=== PATIENT | female | born 2005 | race Caucasian/White ===

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

== ENCOUNTER 2023-02-13 08:50 | Emergency (ER) | payer OTHER, SELFPAY ==
[2023-02-13 08:53] VITALS: BP 129/82; PULSE 85; RESP 16; TEMP 36.6; O2SAT 98
--- NOTE | 2023-02-13 09:00 | DI.CT_ITS ---
Exam(s) CT HEAD WO EXAM: CT HEAD WO CLINICAL HISTORY: left frontal head injury. TECHNIQUE: Imaging Protocol: Axial computed tomography images with coronal and sagittal reformatted images were created and reviewed COMPARISON: No exams were available for comparison FINDINGS: Ventricles and Extra axial spaces: Normal in size and morphology for the patient's age. Hemorrhage: None. Cerebral parenchyma: No evidence of acute infarct or mass. Midline shift: None. Brainstem/Cerebellum: Normal. Calvarium: Normal. Visualized Paranasal sinuses/Mastoids: Clear. Soft Tissues: Unremarkable. IMPRESSION: No acute intracranial process. RADIATION DOSE DELIVERED: Total DLP DATA REPOSITORY: All CT scans at this facility are submitted to the National Radiology Data Registry (NRDR) Dose Index Registry (DIR) with the [employer] (ACR). RADIATION OPTIMIZATION: All CT scans at this facility use at least one of these dose optimization te chniques: automated exposure control; mA and/or kV adjustment per patient size (includes targeted exa ms where dose is matched to clinical indication); or iterative reconstruction.
--- NOTE | 2023-02-13 09:13 | ED.GENADUL_ITS ---
Discharge Plan Disposition Patient Disposition: Home Condition: Improving Discharge Details Chief Complaint: HeadInjury Clinical Impression: Head injury Primary Care Provider: Lora Clemens ED Provider: Jameson Garay Home Meds and New Rx's Prescriptions: No Action Mirena 20 mcg/24 hours (5 yrs) 52 mg intrauterine device 1 device IY ONCE ibuprofen 800 mg Tablet 800 mg PO Q6H PRN acetaminophen 500 mg Tablet 1,000 mg PO Q6H PRN Discharge Instructions Instructions: Concussion (ED), Head Injury (ED) Additional Instructions: Please follow-up with your primary care physician. Please return to the emergency department for any worsening symptoms Stand Alone Forms: Work Release Medical Decision Making 17-year-old female presents 2 days after stating head injury at work, was struck in the head by a dog's head, pain to left brow, no loss of consciousness, has experienced nausea dizziness head pressure over the past 2 days, history of prior concussion, neurologically intact nonfocal, full strength and sensation, cranial nerves intact, no truncal ataxia, ambulatory without assistance, afebrile nontoxic, likely concussion however given patient concern and persistent symptomatology will obtain CT head to assess for intracerebral hemorrhage or skull fracture; trial of anti-inflammatory analgesia and antiemetics. Close reassessment. 10: 10 patient resting notably no acute distress neurologically intact. CT head unremarkable. Home care instructions and return precautions given. Likely mild to moderate concussion HPI General Date/Time Provider Initiated Documentation: 02/13/23 08:51 . HPI Narrative: 17-year-old female presents 2 days after sustaining head injury at work at which time patient was restraining a dog whose head struck her left forehead, no loss of consciousness however has had headache nausea dizziness over the past 2 days, history of concussions in the past this feels different than her last concussion. No vomiting, no falls although does feel slightly unsteady. No weakness or numbness described. Related Data Home Medications Medication Instructions Recorded Confirmed levonorgestrel 21 mcg/24 hours (8 1 device intrauterine ONCE 07/15/18 02/13/23 yrs) 52 mg intrauterine device (Mirena) acetaminophen 500 mg tablet 1,000 mg PO Q6H PRN 05/06/22 02/13/23 ibuprofen 800 mg tablet 800 mg PO Q6H PRN 05/06/22 02/13/23 Allergies Allergy/AdvReac Type Severity Reaction Status Date / Time Penicillins Allergy Family Verified 02/13/23 08:58 HX-pt has never had pcn General Stated Complaint: HeadInjury CHARISSE: 3 Review of Systems Narrative: Review of Systems Constitutional: negative Eyes: negative ENT: negative Cardiovascular: negative Respiratory: negative Gastrointestinal: negative : negative Musculoskeletal: negative Skin: negative Neurologic: Headache, dizziness Psych: negative PFSH All Active Problems (Updated 02/13/23 @ 10:12 by Jameson Garay MD) Head injury (Acute) Unvaccinated for covid-19 (Acute) Shrimp allergy (Acute) Anxiety (Chronic) TMJ arthralgia (Acute) Family disruption (Acute) IUD surveillance (Chronic ~06/2018) Mirena for Dysmenorrhea Dysmenorrhea in adolescent (Chronic) Routine child health exam (Acute 07/19/14) 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 IEP signed 04/02/2018 Pediatric body mass index (BMI) of 5th percentile to less than 85th percentile for age (Acute 07/18/16) Keratosis pilaris (Chronic 07/19/15) Hx of penicillin allergy (Acute 07/19/15) strong maternal family history of this allergy she has never used PCN Surgical History No significant past surgical history Family History Mother Dental caries Mental disorder anxiety/depression Other Diabetes MGF, many other maternal relatives Essential hypertension MGF, other mat relatives Deep vein thrombosis (DVT) MGF, MGGM Personal history of malignant neoplasm maternal side- breast, cervical and other kinds Heart disease MGF Hyperlipidemia MGF Mental disorder MGGM, MGF- anxiety/depression Myocardial infarction MGF Maternal Grandmother Breast cancer Aunt Breast cancer Social History Smoking/Tobacco Use Status: Never Smoking risk assessment performed?: Yes Alcohol Intake: never Drug use: Never Substance use type: does not use Housing: apartment Education Level: high school Details: [employer] Pets and animals: Yes (3 DOGS AND 2 CATS ) Pets and animals: cat(s), dog(s) and hamster(s) Sexually active: No Do you think of yourself as: straight/heterosexual Current gender identity: female Seatbelt use: always Helmet use: Yes Helmet use: always Fire extinguisher in home: Yes Carbon monox detector in home: Yes Do you feel safe at home: Yes Do you feel safe in your relationship?: Yes Female Reproductive History Menstrual Duration of menses: 6-7 days control method: none and progestin IUCD (mirena IUD inserted by Shavonne Martins NP [id number] EXP=11/2020) History History 0 Para Hx # Term Pregnancies Multiple births Hx # Pregnancies Ectopic pregnancies AB induced Hx Number of Living Children AB spontaneous Exam Narrative Exam Narrative: Physical Examination General: alert, awake, cooperative, resting comfortably, no acute distress HEENT: normocephalic, atraumatic; PERRL, EOM intact, conjunctiva normal; no nasal discharge; moist mucous membranes, oral and pharyngeal mucosa normal, tolerating secretions; TMs clear bilaterally Neck: supple, trachea midline; full ROM Chest: normal to inspection Respiratory: normal respiratory effort, speaking in full sentences Skin: no lesions, rashes or trauma appreciated Neuro: AAOx3, normal speech, moving all extremities; cranial nerves II through XII intact, 5 out of 5 strength upper and lower extremities Extremities: No signs of trauma Psych: Appropriate mood and affect Course Vital Signs Vital signs: Vital Signs Temperature 36.6 C 02/13/23 08:53 Pulse 85 02/13/23 08:53 Respiratory Rate 16 02/13/23 08:53 Blood Pressure 129/82 02/13/23 08:53 Pulse Oximetry 98 02/13/23 08:53 Temperature 36.6 C 02/13/23 08:53 Temperature Source Temporal Artery Scan 02/13/23 08:53 Pulse 85 02/13/23 08:53 Respiratory Rate 16 02/13/23 08:53 Respiratory Effort Normal 02/13/23 09:02 Respiratory Depth Normal 02/13/23 09:02 Respiratory Pattern Normal 02/13/23 09:02 Blood Pressure 129/82 02/13/23 08:53 Pulse Oximetry 98 02/13/23 08:53 Oxygen Delivery Method Room Air 02/13/23 08:53 Oxygen Flow Rate 0 02/13/23 08:53
[2023-02-13] MEDS: Dexamethasone 10 MG/ML VIAL PO (09:19)
[2023-02-13] MEDS: Ondansetron O.D.T. 4 MG TABEF SL (09:20)
[2023-02-13] MEDS: Acetaminophen 325 MG TAB 650 MG PO (09:20)
[2023-02-13 10:18] VITALS: BP 125/75; PULSE 72; O2SAT 98
== END 2023-02-13 10:18 | disposition home or self-care (01) ==
PROVIDERS: Emergency Provider Emergency Medicine; PCP Nurse Practitioner Family
DX: R11.0 Nausea (principal); R42 Dizziness and giddiness; S09.90XA Unspecified injury of head, initial encounter; W54.1XXA Struck by dog, initial encounter
CPT/HCPCS: 99284; 70450; 99283; J1100

== ENCOUNTER 2023-09-11 20:04 | Emergency (ER) | payer OTHER, SELFPAY ==
[2023-09-11 20:08] VITALS: BP 114/80; PULSE 74; RESP 16; TEMP 36; O2SAT 99
--- NOTE | 2023-09-11 20:21 | ED.GENADUL_ITS ---
Discharge Plan Disposition Patient Disposition: Home Condition: Stable Discharge Details Clinical Impression: Fish hook in elbow Primary Care Provider: Lora Clemens ED Provider: Donaldo Martins Home Meds and New Rx's Prescriptions: New cephalexin 500 mg tablet 500 mg PO QID 5 Days Qty: 20 0RF levofloxacin 750 mg tablet 750 mg PO DAILY Qty: 5 0RF Continued ibuprofen 800 mg Tablet 800 mg PO Q6H PRN acetaminophen 500 mg Tablet 1,000 mg PO Q6H PRN Discharge Instructions Additional Instructions: Your wound should heal well on their own. If you have redness spreading away from the wound or severe pain return to the emergency department for reevaluation HPI General Mode of arrival: ambulatory . Date/Time Provider Initiated Documentation: 09/11/23 20:14 . Limitations to Documentation: no limitations . Information obtained by: patient . History of Present Illness 18 year old F presents to the emergency department with the chief complaint of fishhook left arm, described as mild, Quality is described as aching, Patient started experiencing this hour(s) (1) and it has been constant. No relieving factors improve symptom(s), No exacerbating factors reported . Patient notes no other symptoms.. Patient did receive the following treatments prior to arrival, none Related Data Home Medications Medication Instructions Recorded Confirmed acetaminophen 500 mg tablet 1,000 mg PO Q6H PRN 05/06/22 09/11/23 ibuprofen 800 mg tablet 800 mg PO Q6H PRN 05/06/22 09/11/23 cephalexin 500 mg tablet 500 mg PO QID 5 days #20 tabs 09/11/23 levofloxacin 750 mg tablet 750 mg PO DAILY #5 tabs 09/11/23 Previous Rx's Medication Instructions Recorded cephalexin 500 mg tablet 500 mg PO QID 5 days #20 tabs 09/11/23 levofloxacin 750 mg tablet 750 mg PO DAILY #5 tabs 09/11/23 Allergies Allergy/AdvReac Type Severity Reaction Status Date / Time Penicillins Allergy Family Verified 09/11/23 20:11 HX-pt has never had pcn General Stated Complaint: ForeignBody CHARISSE: 4 Review of Systems All systems reviewed & are unremarkable except as noted in HPI and below Constitutional Constitutional: Denies chills, Denies fever(s) and Denies weakness Gastrointestinal Gastrointestinal: Denies vomiting Neurologic Neurologic: Denies weakness Exam Const General: no acute distress Orientation: alert HENMT Head: normal to inspection Ears: external ears normal General nose exam: external nose normal Mouth: moist mucous membranes Eyes General: appearance normal, both eyes and all related structures Neck Neck: normal visual inspection Resp Effort & Inspection: normal respiratory effort and able to speak in complete sentences Cardio Rate: regular rate Skin General skin exam: no rashes or lesions noted Neuro General: patient alert and patient oriented x3 Extrem General: full ROM Psych Mental Status: mental status grossly normal Course Vital Signs Vital signs: Vital Signs Temperature 36.0 C L 09/11/23 20:08 Pulse 74 09/11/23 20:08 Respiratory Rate 16 09/11/23 20:08 Blood Pressure 114/80 09/11/23 20:08 Pulse Oximetry 99 09/11/23 20:08 Temperature 36.0 C L 09/11/23 20:08 Temperature Source Skin 09/11/23 20:08 Pulse 74 09/11/23 20:08 Respiratory Rate 16 09/11/23 20:08 Respiratory Effort Normal, Non-Labored 09/11/23 20:12 Blood Pressure 114/80 09/11/23 20:08 Blood Pressure Position Sitting 09/11/23 20:08 Pulse Oximetry 99 09/11/23 20:08 Oxygen Delivery Method Room Air 09/11/23 20:08 Oxygen Flow Rate 0 09/11/23 20:08 Pain Level 2 09/11/23 20:08 Medical Decision Making 18-year-old female comes in with complaint of a fishhook in her left upper extremity. She says she was fishing when the hook accidentally got into her left arm. She has 2 hooks from a 3 helped fishhook in her left posterior arm just proximal to the left elbow. POCUS and superficially, will place lidocaine and likely advanced cut and removed. She has full range of motion of the elbow so do not feel any imaging indicated. After instilling 60 cc of 2% lidocaine with epi, I advanced the 2 ends of the hook through the skin and using a ring cutter on a pair of trauma janet, clipped both hooks with no barbs off and was able to remove the hook successfully. Patient tolerated well. Given the hook had been in fresh water will electively treat with cephalexin and levofloxacin. 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 IEP signed 04/02/2018 Pediatric body mass index (BMI) of 5th percentile to less than 85th percentile for age (Acute 07/18/16) Keratosis pilaris (Chronic 07/19/15) Hx of penicillin allergy (Acute 07/19/15) strong maternal family history of this allergy she has never used PCN Surgical History No significant past surgical history Family History Mother Dental caries Mental disorder anxiety/depression Other Diabetes MGF, many other maternal relatives Essential hypertension MGF, other mat relatives Deep vein thrombosis (DVT) MGF, MGGM Personal history of malignant neoplasm maternal side- breast, cervical and other kinds Heart disease MGF Hyperlipidemia MGF Mental disorder MGGM, MGF- anxiety/depression Myocardial infarction MGF Maternal Grandmother Breast cancer Aunt Breast cancer Social History Smoking/Tobacco Use Status: Never Smoking risk assessment performed?: Yes Alcohol Intake: never Drug use: Never Substance use type: does not use Housing: apartment Education Level: high school Details: [employer] Pets and animals: Yes (3 DOGS AND 2 CATS ) Pets and animals: cat(s), dog(s) and hamster(s) Sexually active: No Do you think of yourself as: straight/heterosexual Current gender identity: female Seatbelt use: always Helmet use: Yes Helmet use: always Fire extinguisher in home: Yes Carbon monox detector in home: Yes Do you feel safe at home: Yes Do you feel safe in your relationship?: Yes Female Reproductive History Menstrual Duration of menses: 6-7 days control method: none and condoms History History 0 Para Hx # Term Pregnancies Multiple births Hx # Pregnancies Ectopic pregnancies AB induced Hx Number of Living Children AB spontaneous
[2023-09-11] MEDS: Tetanus & Diphtheria Tox,ADULT 0.5 ML VIAL IM (20:47)
[2023-09-11] MEDS: Cephalexin 500 MG CAP PO (20:48)
[2023-09-11] MEDS: levoFLOXacin 500 MG, levoFLOXacin 250 MG 750 MG PO (20:48)
== END 2023-09-11 20:58 | disposition home or self-care (01) ==
PROVIDERS: Emergency Provider Emergency Medicine; PCP Nurse Practitioner Family
DX: S51.042A Puncture wound with foreign body of left elbow, initial encounter (principal); W22.8XXA Striking against or struck by other objects, initial encounter; Y93.19 Activity, other involving water and watercraft
CPT/HCPCS: 10120; 90471; 90714; 99283; 99284

== ENCOUNTER 2024-08-18 02:58 | Outpatient (CLI) | payer OTHER, SELFPAY ==
[2024-09-02 16:18] LABS: Rabies Antibody Endpoint 0.8 IU/mL
== END 2024-08-18 02:59 | disposition home or self-care (01) ==
PROVIDERS: PCP Nurse Practitioner Family; Visit Provider Pediatrics
DX: Z23 Encounter for immunization (principal)
CPT/HCPCS: 36415; 86317